=== PATIENT | male | born 1990 | race Caucasian/White ===

== ENCOUNTER 2021-12-21 13:49 | Emergency (ER) | payer SELFPAY ==
[~2021-12-21] VITALS: Ht 177.8 cm; Wt 77.3 kg
[2021-12-21 14:03] VITALS: BP 132/82
[2021-12-21] MEDS ORDERED: IBUP800T19 PO (14:10)
[2021-12-21] MEDS ORDERED: AMOX1TAB61 PO (14:10)
--- NOTE | 2021-12-21 14:10 | PHYS DOC ---
General Adult EDM: Chief Complaint: DENTAL PROBLEM HPI: HPI: Patient is a 31-year-old male coming in for right upper dental pain. Patient states that 2 days ago he was chewing pizza he felt his tooth break, later was able to remove a part of the tooth. He is he has had problems with dental infection and dental caries in the past. Denies any difficulty swallowing or talking. Denies any purulent drainage. No fevers or other systemic complaints. Review of Systems: Review of Systems: All other systems within normal limits except for as noted in the HPI Allergies: Allergies: Allergies Coded Allergies Type Severity Reaction Last Updated Verified No Known Drug Allergies 12/21/21 No Physical Exam: PE: Constitutional: Well developed, well nourished, no acute distress, non-toxic appearance. [] HENT: Normocephalic, atraumatic, bilateral external ears normal, nose normal. No trismus, multiple dental caries, no swelling of the face, swelling of gingiva without fluctuance in right upper molars broken tooth #2 [] Eyes: PERRLA, conjunctiva normal, no discharge. [] Neck: No rigidity, supple, no stridor. [] Cardiovascular: Regular rate and rhythm, brisk cap refill [] Lungs & Thorax: Non labored symmetric respirations, no tachypnea or respiratory distress [] Abdomen: Soft, nondistended. Skin: Warm, dry, no erythema, no rash. [] Back: Unremarkable Extremities: No deformities, range of motion grossly intact, no lower extremity edema [] Neurologic: Alert and oriented X 3, no focal deficits noted. [] Psychologic: Affect normal, judgement normal, mood normal. [] EKG: EKG: [] Radiology/Procedures: Radiology/Procedures: [] Heart Score: C/O Chest Pain: No Risk Factors: Risk Factors: DM, Current or recent (<one month) smoker, HTN, HLP, family history of CAD, obesity. Risk Scores: Score 0 - 3: 2.5% MACE over next 6 weeks - Discharge Home Score 4 - 6: 20.3% MACE over next 6 weeks - Admit for Clinical Observation Score 7 - 10: 72.7% MACE over next 6 weeks - Early Invasive Strategies Course & Med Decision Making: Course & Med Decision Making Pertinent Labs and Imaging studies reviewed. (See chart for details) [] Dragon Disclaimer: Dragon Disclaimer: This electronic medical record was generated, in whole or in part, using a voice recognition dictation system. Departure Departure: Impression: Primary Impression: Infected dental caries Disposition: HOME / SELF CARE / HOMELESS Condition: STABLE Referrals: PCP,NO (PCP) Patient Instructions: Dental Caries-Brief Scripts Ibuprofen (IBUPROFEN) 800 Mg Tablet 1 TAB PO TID PRN for PAIN, #30 TAB Prov: MARYAM RICO MD 12/21/21 Amoxicillin/Potassium Clav (AUGMENTIN 875-125 TABLET) 1 Each Tablet 1 TAB PO BID for antibiotic for 10 Days, #20 TAB 0 Refills Prov: MARYAM RICO MD 12/21/21 MARYAM RICO MD December 21, 2021 14:10
[2021-12-21] MEDS ORDERED: BENZOCAINE ONE 20% MUCOSAL SPRAY. MM (14:15)
== END 2021-12-21 14:24 | disposition home or self-care (01) ==
LOC: ER 13:49
DX: K02.9 Dental caries, unspecified (principal)
CPT/HCPCS: 99283